=== PATIENT | female | born 1965 | race Caucasian/White ===

== ENCOUNTER 2021-11-09 10:36 | Emergency (ER) | payer OTHER, SELFPAY ==
[2021-11-09 10:54] VITALS: BP 96/52; PULSE 50; TEMP 36.9; O2SAT 99
[2021-11-09 11:07] VITALS: BP 96/52; PULSE 53; RESP 18; TEMP 36.9; O2SAT 99; BMI 22.8
--- NOTE | 2021-11-09 11:07 | DI.RAD.S_ITS ---
PROCEDURE: XR KNEE LT 3V INDICATIONS: fall 11/08/21 TECHNIQUE: 3 views of the knee were acquired. COMPARISON: None. FINDINGS: Bones: No fractures or dislocations. No suspicious bony lesions. Soft tissues: No joint effusion. No suspicious soft tissue calcifications. IMPRESSION: Normal left knee Dictated by: Jef Whitman M.D. on 11/09/2021 at 10:24 Approved by: Jef Whitman M.D. on 11/09/2021 at 10:25
--- NOTE | 2021-11-09 11:41 | ED_ITS ---
HPI - Extremity Injury (Lower) General Chief Complaint: Extremity Injury, Lower Stated Complaint: Fell- lt knee pain Time Seen by Provider: 11/09/21 11:41 Source: patient Mode of arrival: Family Vehicle History of Present Illness HPI Narrative: 56-year-old female who is here for evaluation of left knee pain. She states yesterday she fell forward landing on her left knee. She is unsure exactly how she landed. She thinks she got her right foot caught causing her to fall forward. She was able to get up and walk afterwards. No other injuries from the event. She actually walked approximately 1 mi after the event. After she went home and sat for a while she started to have swelling and increasing discomfort to her left knee. She is here today because of continued symptoms. She is able to ambulate but it is very difficult for her to. Related Data Home Medications Medication Instructions Recorded Confirmed epinephrine 0.1 mg/0.1 mL IM 10/31/21 10/31/21 injection, auto-injector Allergies Allergy/AdvReac Type Severity Reaction Status Date / Time BEE VENOM Allergy Unknown Uncoded 10/21/21 12:09 Review of Systems Musculoskeletal Musculoskeletal: Reports system reviewed and no additional complaints, except as documented Integumentary/Breasts Skin/Breast: Reports system reviewed and no additional complaints, except as documented Neurologic Neurologic: Reports system reviewed and no additional complaints, except as documented Hematologic/Lymphatic On Anticoagulants: No Patient History Medical History Adjustment disorder with anxiety Anxiety with depression Marijuana use Social History Smoking Status: Never smoker Smoking Status: Never smoker alcohol intake frequency: 0-2 drinks per day Substance Use Type: does not use Exam Initial Vital Signs Initial Vital Signs: Vital Signs Temperature 98.5 F 11/09/21 10:54 Pulse Rate 50 L 11/09/21 10:54 Blood Pressure 96/52 L 11/09/21 10:54 Pulse Oximetry 99 11/09/21 10:54 HENMT Head: normal to inspection and normocephalic Skin General: no rashes or lesions noted Neuro General: patient alert and patient awake Sensory Exam: no sensory deficits noted Extrem Other: Mild effusion to the left knee. She is no tenderness over the quadriceps tendon or patellar tendon. She is able to do a straight leg raise. She does have tenderness posteriorly. No proximal fibula tenderness. Her ACL MCL PCL LCL all do seem somewhat loose without specific end points however it is similar to her right knee which she has no specific symptoms. Procedures Orthopedic Splinting/Casting Injury #1: Side: left Lower Extremity Injury Location: knee Lower Extremity Immobilizer: Rahat wrap Post splinting neuro exam: no change Post splinting vascular exam: no change Placed by: Nursing Course Orders Ordered: ED Orders 11/09/21 11:07 XR knee LT 3V Stat Vital Signs Vital signs: Vital Signs - 8 hr 11/09/21 10:54 11/09/21 11:07 Temperature 98.5 F 98.5 F Pulse Rate 50 L 53 L Respiratory Rate 18 Blood Pressure 96/52 L 96/52 L Pulse Oximetry 99 99 Oxygen Delivery Method Room Air MDM - Extremity Injury (Lower) Imaging Data Extremity x-ray #1: Radiologist's Impression: [address] [address] XRay Report Signed Patient: Joelle Navarro MR#: [id number] : 1965 Acct:[id number] Age/Sex: 56 / F Date of Service: 11/09/21 Loc: ED Accession Number: [id number] ?? Procedure: XR knee LT 3V Ordering Provider: Vic Zamora D.O. PROCEDURE:? XR KNEE LT 3V ? INDICATIONS:? fall 11/08/21 ? TECHNIQUE:? 3 views of the knee were acquired.? ? COMPARISON:? None. ? FINDINGS:? ? Bones:? No fractures or dislocations.? No suspicious bony lesions.? ? Soft tissues:? No joint effusion.? No suspicious soft tissue calcifications.? ? ? IMPRESSION:? Normal left knee ? ? Dictated by: Jef Whitman M.D. on 11/09/2021 at 10:24 ? ? Approved by: Jef Whitman M.D. on 11/09/2021 at 10:25? [facility] Narrative Medical decision making narrative: No fractures were noted on the x-rays. She is neurovascularly intact. She does have an effusion the left knee. No indication of infection. Will treat sym ptomatically for now. She was instructed that if her symptoms do not improve the next 7-10 days that she may need re-evaluated for potential physical therapy referral or more advanced imaging. She was given crutches and an Rahat bandage for comfort. She was given return precautions. She expressed understanding and agreement. Discharge Plan Departure Patient Disposition: Home Clinical Impression: Knee pain, Effusion of knee joint, left Instructions: How to Use Crutches, How To Perform RICE (Rest, Ice, Compress, Elevate), DI for Knee Pain, How to Apply an Elastic Wrap on Knee Activity Restrictions/Additional Instructions: The x-ray did not show any signs of a fracture. You can use the crutches and elastic bandage as needed. Be sure to ice your knee as well. Return to the emergency department for any new or worsening symptoms. Contact your primary provider for follow-up. Prescriptions: No Action epinephrine 0.1 mg/0.1 mL auto-injector IM Referrals: Sara Ulloa PA-C [Primary Care Provider] - Visit Report Forms: Patient Portal/API
--- NOTE | 2021-11-09 12:02 | PC.NURSE ---
pt has crutches and jamin wrap ordered. pt standing at door. states she has to leave or she will have to wait 4 more hours [place] her ferry. did not want to wait for crutches, training, or jamin wrap. ambulated out of ED with steady gait with spouse. NAD. DC paperwork given.
== END 2021-11-09 12:04 | disposition home or self-care (01) ==
PROVIDERS: Emergency Provider Emergency Medicine; PCP Physician Assistant
DX: M25.462 Effusion, left knee (principal); W19.XXXA Unspecified fall, initial encounter
CPT/HCPCS: 73562; 99281; 99283

== ENCOUNTER → 2021-11-28 08:06 | Outpatient (CLI) | payer OTHER, SELFPAY ==
[2021-11-28 19:06] LABS: Add Manual Diff / Slide Review NO; Basophils Absolute Auto 0 /uL (0-100); Basophils Percent Auto 0.6 % (0-2); Eosinophils Absolute Auto 300 /uL (0-450); Eosinophils Percent Auto 4.6 % (2-4); Hematocrit 38.6 % (36-46); Hemoglobin 13.5 g/dL (12.0-16.0); Lymphocytes Absolute Auto 2200 /uL (1100-4500); Lymphocytes Percent Auto 40.2 % (25-40); Mean Corpuscular Hemoglobin 31.8 PG (26-34); Mean Corpuscular Volume 90.8 fL (80-100); Monocytes Absolute Auto 400 /uL (0-900); Neutrophils Absolute Auto 2600 /uL (1500-7000); Neutrophils Percent Auto 47.6 % (50-75); Platelet Count 277 X10^3/uL (150-400); Red Blood Cell Count 4.25 X10^6/uL (4.0-5.2); Red Cell Distribution Width 12.9 % (11.6-14.8); White Blood Cell Count 5.5 X10^3/uL (4.5-11.0)
[2021-11-28 19:26] LABS: Alanine Aminotransferase 16 IU/L (<35); Albumin 4.4 g/dL (3.5-5.0); Albumin Globulin Ratio 1.6 (1.0-2.8); Alkaline Phosphatase 63 U/L (38-126); Aspartate Aminotransferase 24 IU/L (14-36); BUN Creatinine Ratio 16.7 (6-22); Bilirubin Total 0.7 mg/dL (0.2-1.3); Blood Urea Nitrogen 13 mg/dL (7-17); Calcium 9.6 mg/dL (8.4-10.2); Carbon Dioxide 32 mmol/L (22-32); Chloride 104 mmol/L (98-107); Cholesterol 225 mg/dL (140-199); Estimated Glomerular Filt Rate > 60 mL/min (>60); Globulin 2.8 g/dL (1.7-4.1); Glucose 96 mg/dL (70-100); HDL Cholesterol 75 mg/dL (40-60); HEMOLYSIS < 15 (0-50); LDL Cholesterol Calculated 138 mg/dL (<100); Potassium 4.7 mmol/L (3.4-5.1); Sodium 141 mmol/L (137-145); Total Protein 7.2 g/dL (6.3-8.2); Triglycerides 59 mg/dL (35-150)
[2021-11-28 19:35] LABS: Hemoglobin A1C% w Est Avg Glu 5.6 % (4.0-6.0)
[2021-11-28 19:40] LABS: TSH w/ Reflex to FT4 1.46 uIU/mL (0.47-4.68)
[2021-11-28 19:59] LABS: Ferritin 26 ng/mL (11-264)
[2021-11-28 20:13] LABS: Vitamin B12 > 1000 pg/mL (239-931)
== END ==
PROVIDERS: PCP Physician Assistant; Visit Provider Physician Assistant
DX: G62.9 Polyneuropathy, unspecified (principal); Z12.11 Encounter for screening for malignant neoplasm of colon; Z13.220 Encounter for screening for lipoid disorders
CPT/HCPCS: 80053; 80061; 82607; 82728; 83036; 84443; 85025

== ENCOUNTER → 2022-01-23 09:27 | Outpatient (CLI) | payer OTHER, SELFPAY ==
[2022-01-23 19:46] LABS: COVID19 - ORCAS (NP or Nasal) Negative (Negative)
== END ==
PROVIDERS: PCP Physician Assistant; Visit Provider Family Medicine
DX: Z01.812 Encounter for preprocedural laboratory examination (principal); Z20.822 Contact with and (suspected) exposure to COVID-19
CPT/HCPCS: U0003

== ENCOUNTER 2022-01-26 06:54 | Day surgery (SDC) | payer OTHER, SELFPAY ==
[2022-01-26 07:17] VITALS: BP 105/63; PULSE 41; RESP 16; TEMP 36.3; O2SAT 100; BMI 23.6
[2022-01-26] MEDS: SODIUM CHLORIDE 0.9% 1,000 ML 84 ML IV (07:26)
--- NOTE | 2022-01-26 08:02 | P.HP_ITS ---
History of Present Illness History of Present Illness Date Patient Seen: 01/26/22 Time Patient Seen: 08:02 [place] complaint[place] [facility] History Medical History Abnormal Pap smear of cervix (~1993) ADHD Adjustment disorder with anxiety Anorexia nervosa (~1978) Anxiety with depression Chicken pox (~1971) Chronic back pain Eczema Herpes (~1998) Marijuana use Migraines Nerve pain Plantar warts Rosacea (~2006) Rubella (~1978) Skin cancer (~2004) Surgical History Anesthesia History of appendectomy (~1975) Family & Social History Family History Mother History of heart disease Brother Mental health problem Social History: household members spouse Tobacco & Substance use: Tobacco type cigarettes Smoking Status Never smoker alcohol intake current alcohol intake frequency 0-2 drinks per day Substance Use Type marijuana Meds Home Medications and Allergies Home Medications Medication Instructions Recorded Confirmed Type epinephrine 0.1 mg/0.1 mL See Rx Instructions .Route 10/31/21 01/26/22 History injection, auto-injector .COMPLEX PRN Allergic Reaction naproxen 500 mg tablet 500 mg PO BID #60 tabs 11/28/21 01/26/22 Rx Allergies Allergy/AdvReac Type Severity Reaction Status Date / Time BEE VENOM Allergy Unknown Uncoded 01/26/22 07:11 Review of Systems Review of Systems ROS: Yes All systems reviewed with the patient and are negative except as otherwise documented Exam Vital Signs (past 8 hours): - 01/26/22 07:17 Temperature 97.4 F L Pulse Rate 41 L Respiratory Rate 16 Blood Pressure 105/63 Pulse Oximetry 100 Oxygen Delivery Method Room Air Oxygen Flow Rate 0 Oxygen Delivery Method Room Air Oxygen Flow Rate 0 Const General: cooperative HENMT Head: normal to inspection Eyes General: appearance normal, both eyes and all related structures Neck Neck: normal visual inspection Chest Chest: normal inspection of the chest Resp Effort & Inspection: normal respiratory effort Cardio Rate: regular rate GI Inspection: normal to inspection Skin General: no rashes or lesions noted Neuro General: patient alert and patient awake Extrem General: normal to inspection and no pedal edema Psych Appearance: grossly normal Assessment & Plan Assessment & Plan narrative: 57-year-old female with a personal history of colon polyps. Colonoscopy is planned for today. Time Spent With Patient Critical Care time: I spent a total of [] minutes of critical care time on this patient's care today; this time is exclusive of procedural time.
--- NOTE | 2022-01-26 08:03 | PM.PREOP ---
Pre-operative Note COVID-19 COVID-19 status: Negative Result date/Date tested (Pos, Neg/Pending): 01/23/22 Criteria for continued procedure: Possibility delay results in more complex future surgery or treatment Interval Note History & Physical reviewed/Exam performed by Physician: Yes Changes to H&P: No ASA Class (for procedural sedation): II
--- NOTE | 2022-01-26 08:28 | P.OP.COLON_ITS ---
Operative Date/Time/Diagnoses Date of procedure: 01/26/22 Time of procedure: 08:29 Pre-op diagnosis: History of colon polyps Post-op diagnosis: same Procedure & Clinicians Study performed: Colonoscopy Same procedure as scheduled: Yes Indications: History of colon polyps Surgeon: Joseph Phillips Procedure Notes SCOAP/Timeout: Done Procedure in detail: After the risks and benefits were explained, written and verbal informed consent was obtained. The patient was brought into the procedure room and placed into the left lateral decubitus position. Please see nurse building guard deputy sheriff notes for sedation details. Digital rectal examination was accomplished. The scope was introduced into the patient and advanced under direct visualization to the cecum as identified by the appendiceal orifice and ileocecal valve. The scope was slowly withdrawn to carefully examine the mucosa for any defects or lesions. Comprehensive imaging was accomplished throughout the rectum including the dentate line. The colon was decompressed, the scope was then removed from the patient who tolerated the procedure well. Adult colonoscope Bowel prep adequate Scope withdrawal time: 7 minutes Sedation minutes: 14 Specimen(s): none sent Complications: none Impression: Patient had grade 1 internal hemorrhoids. Mild diverticulosis was encountered in the left colon. No significant polyps mass lesions or inflammatory features identified throughout. Endoscopic diagnosis 1. Diverticulosis 2. Grade 1 hemorrhoids Post-procedure Plan for aftercare: Repeat colonoscopy in 5-7 years considering past history of colon polyps. Disposition: PACU
[2022-01-26 08:32] VITALS: BP 80/48; PULSE 52; RESP 16; TEMP 36.4; O2SAT 98
[2022-01-26 08:36] VITALS: BP 88/56; PULSE 50; RESP 18; O2SAT 99
[2022-01-26 08:42] VITALS: BP 89/59; PULSE 41; RESP 12; O2SAT 100
[2022-01-26 08:47] VITALS: BP 94/65; PULSE 46; RESP 12; TEMP 36.3; O2SAT 100
[2022-01-26 08:55] VITALS: BP 99/63; PULSE 40; RESP 12; TEMP 36.7; O2SAT 100
== END 2022-01-26 09:07 | disposition home or self-care (01) ==
PROVIDERS: PCP Physician Assistant; Referring Provider Internal Medicine Gastroenterology; Visit Provider Internal Medicine Gastroenterology
PROC: 0DJD8ZZ Inspection of Lower Intestinal Tract, Via Natural or Artificial Opening Endoscopic (ICD-10-PCS; CPT 45378; principal; 2022-01-26 08:00)
DX: Z12.11 Encounter for screening for malignant neoplasm of colon (principal); Z86.010 Personal history of colon polyps; K57.30 Diverticulosis of large intestine without perforation or abscess without bleeding; K64.0 First degree hemorrhoids
CPT/HCPCS: 45378; J2704

== ENCOUNTER → 2022-06-18 16:40 | Outpatient (CLI) | payer OTHER, SELFPAY ==
--- NOTE | 2022-06-18 | DI.MG.S_ITS ---
BILATERAL DIGITAL SCREENING MAMMOGRAM 3D/2D WITH CAD: 06/18/2022 CLINICAL: Routine screening. Comparison is made to exams dated: 05/08/2021 mammogram and 03/27/2020 mammogram - outside facility. There are scattered areas of fibroglandular density in both breasts (category b / 25%-50% glandular tissue). Current study was also evaluated with a Computer Aided Detection (CAD) system. No significant masses, calcifications, or other findings are seen in either breast. There has been no significant interval change. IMPRESSION: NEGATIVE There is no mammographic evidence of malignancy. A 1 year screening mammogram is recommended. Based on the Tyrer Cuzick model (a risk assessment model) the patient's lifetime risk is 8.7% and her 10 year risk is 2.8%. According to the ACR, ACS, and NCCN guidelines, an annual breast MRI exam along with mammogram is recommended if the patient's lifetime risk is 20% or greater. This exam was interpreted at Station ID: [id number]. NOTE: For mammograms, a report in lay terms will be sent to the patient. Approximately 15% of breast malignancies will not be visualized mammographically. In the management of a palpable breast mass, a negative mammogram must not discourage biopsy of a clinically suspicious lesion. Electronically Signed By: Eddie Moe M.D., jr/espinoza:06/19/2022 14:00:59 letter sent: Normal Exam ACR BI-RADS Category 1: Negative 3341F
== END ==
PROVIDERS: PCP Physician Assistant; Referring Provider Physician Assistant; Visit Provider Physician Assistant
DX: Z12.31 Encounter for screening mammogram for malignant neoplasm of breast (principal)
CPT/HCPCS: 77063; 77067

== ENCOUNTER → 2022-10-19 09:23 | Outpatient (CLI) | payer OTHER, SELFPAY ==
[2022-10-19 19:43] LABS: Cholesterol 221 mg/dL (140-199); HDL Cholesterol 70 mg/dL (40-60); LDL Cholesterol Calculated 137 mg/dL (<100); Triglycerides 72 mg/dL (35-150)
[2022-10-19 19:54] LABS: LDL Cholesterol Direct 108 mg/dL (<100)
[2022-10-21 03:15] LABS: x Labcorp Estim. Avg Glu (eAG) 111 mg/dL (.); x Labcorp Hemoglobin A1c 5.5 % (4.8-5.6)
== END ==
PROVIDERS: PCP Physician Assistant; Visit Provider Registered Nurse General Practice
DX: E78.5 Hyperlipidemia, unspecified (principal); R73.09 Other abnormal glucose
CPT/HCPCS: 80061; 83036; 83721

== ENCOUNTER → 2023-07-20 10:56 | Outpatient (CLI) | payer OTHER, SELFPAY ==
--- NOTE | 2023-07-20 | DI.MG.S_ITS ---
BILATERAL DIGITAL SCREENING MAMMOGRAM 3D/2D WITH CAD: 07/20/2023 CLINICAL: Routine screening. Comparison is made to exams dated: 06/18/2022 mammogram - [facility], 05/08/2021 mammogram, and 03/27/2020 mammogram - outside facility. Both breasts are heterogeneously dense, which may obscure small masses (category c / 51-75% glandular tissue). Current study was also evaluated with a Computer Aided Detection (CAD) system. No significant masses, calcifications, or other findings are seen in either breast. There has been no significant interval change. IMPRESSION: NEGATIVE There is no mammographic evidence of malignancy. A 1 year screening mammogram is recommended. Based on the Tyrer Cuzick model (a risk assessment model) the patient's lifetime risk is 12.8% and her 10 year risk is 4.5%. According to the ACR, ACS, and NCCN guidelines, an annual breast MRI exam along with mammogram is recommended if the patient's lifetime risk is 20% or greater. This exam was interpreted at Station ID: [id number]. NOTE: For mammograms, a report in lay terms will be sent to the patient. Approximately 15% of breast malignancies will not be visualized mammographically. In the management of a palpable breast mass, a negative mammogram must not discourage biopsy of a clinically suspicious lesion. Electronically Signed By: Shana Tsai M.D., PH.D gilmar/espinoza:07/20/2023 16:12:50 letter sent: Normal Exam ACR BI-RADS Category 1: Negative [id number]
== END ==
LOC: MAMMO 10:57
PROVIDERS: PCP Physician Assistant; Referring Provider Physician Assistant; Visit Provider Physician Assistant
DX: Z12.31 Encounter for screening mammogram for malignant neoplasm of breast (principal); R92.333 Mammographic heterogeneous density, bilateral breasts
CPT/HCPCS: 77063; 77067

== ENCOUNTER → 2024-07-11 07:30 | Outpatient (CLI) | payer OTHER, SELFPAY ==
[2024-07-13 11:36] LABS: Fecal Immunochemical Test Negative (Negative)
== END ==
PROVIDERS: PCP Physician Assistant; Visit Provider Physician Assistant
DX: Z12.11 Encounter for screening for malignant neoplasm of colon (principal)
CPT/HCPCS: 82274

== ENCOUNTER → 2024-10-20 14:20 | Outpatient (CLI) | payer OTHER, SELFPAY ==
--- NOTE | 2024-10-20 14:22 | DI.MG.S_ITS ---
MM screening mammo BI: 10/20/2024. BI-RADS: 1 CLINICAL: 59-year old female for bilateral screening mammogram. Tyrer-Cuzick lifetime risk of 10.9%. No personal or first-degree family history of breast cancer. PRIOR EXAMS 07/20/2023, 06/18/2022; Outside films 05/08/2021 and 03/27/2020. MAMMOGRAPHY TECHNIQUE: 2D and 3D (tomosynthesis) digital mammographic views obtained, with additional images as needed for full coverage. Current study was also evaluated with a Computer Aided Detection (CAD) system. DENSITY C. The breasts are heterogeneously dense, which may obscure small masses. MAMMOGRAPHY FINDINGS Bilateral: No suspicious mass, asymmetry, microcalcification, or other abnormality seen. IMPRESSION: * No evidence of malignancy. RECOMMENDATIONS Bilateral * Annual screening mammography. OVERALL ASSESSMENT CATEGORY BI-RADS-1: Negative. The [employer] recommends annual screening mammography beginning at age 40 for women with average risk of breast cancer. ELECTRONICALLY SIGNED: Armando Linn M.D. on 10/20/2024 at 03:56:49 PM PT Interpreting Station ID: [id number]
--- NOTE | 2024-10-20 14:22 | DI.RAD.S_ITS ---
PROCEDURE: XR DEXA AXIAL SKELETON INDICATIONS: bone density screening COMPARISON: None. FINDINGS: Lumbar Spine: Bone mineral density 0.898 g/cm2, T score -1.4. Left Femoral Neck: Bone mineral density 0.750 g/cm2, T score -0.9. Left Hip: Bone mineral density 0.851 g/cm2, T score -0.7. Fracture Risk Calculation (when applicable): 10-year fracture risk of a major osteoporotic fracture 6.7 percent and of a hip fracture 0.3 percent. (T score greater or equal to -1.0 to: NORMAL) (T score from -1.1 to -2.4: OSTEOPENIA) (T score less than or equal to -2.5: OSTEOPOROSIS) IMPRESSION: Osteopenia--- recommend repeat DEXA in 2-3 years for reassessment. Follow-up guidelines as follows: Osteoporosis: Consider a repeat DEXA and Vertebral Fracture Assessment (VFA) exam in 2 years or sooner if medically necessary, to reassess this patient's status. Osteopenia: Consider a repeat DEXA in 2-3 years to reassess this patient's status, or if there is a new clinical indication. Normal: Consider a repeat DEXA in 5 years or sooner, or if there is a new clinical indication. All treatment decisions require clinical judgment and consideration of individual patient factors, including patient preferences, comorbidities, previous drug use, risk factors not captured in the FRAX model (e.g., frailty, falls, vitamin D deficiency, increased bone turnover, interval significant decline in bone density ) and possible under- or over-estimation of fracture risk by FRAX. In addition, the NOF Guide recommends that FDA-approved medical therapies be considered in postmenopausal women and men age >= 50 years with a: * Hip or vertebral (clinical or morphometric) fracture * T-score of <=-2.5 at the spine or hip * Ten-year fracture probability by FRAX of >= 3% for hip fracture or >=20% for major osteoporotic fracture. Dictated by: Azam Ayers M.D. on 10/20/2024 at 20:43 Approved by: Azam Ayers M.D. on 10/20/2024 at 20:45
== END ==
LOC: MAMMO 14:21
PROVIDERS: PCP Physician Assistant; Referring Provider Physician Assistant; Visit Provider Physician Assistant
DX: Z12.31 Encounter for screening mammogram for malignant neoplasm of breast (principal); R92.333 Mammographic heterogeneous density, bilateral breasts; M85.88 Other specified disorders of bone density and structure, other site; Z78.0 Asymptomatic menopausal state
CPT/HCPCS: 77063; 77067; 77080